=== PATIENT | male | born 1990 | race Caucasian/White ===

== ENCOUNTER 2025-03-03 19:26 | Emergency (ER) | payer MEDICAID, OTHER ==
[~2025-03-03] VITALS: Ht 177.8 cm; Wt 72.6 kg
[2025-03-03 19:56] VITALS: PULSE 100; RESP 20; O2SAT 99
--- NOTE | 2025-03-03 20:23 | ED.PDOC ---
History of Present Illness HPI Comments 34-year-old male brought in by EMS presents with a chief complaint of psychiatric distress. Per EMS, patient was found in the [employer] parking lot after he had made a call to 911 stating that he was exposing his buttocks to citizens. Patient has rambling speech and nonlinear thought process. Unable to obtain a complete medical history as it is difficult for patient to relate any complaints or symptoms at this time. Further history taken from patient's mother. Patient does have a history of Asperger's and marzena. He called his mother this morning and told her that since he was unable to obtain marijuana from a dispensary as he usually does, he purchased unknown substance and took it from someone at the [employer] parking lot. Chief Complaint: Suicidal Time Seen by MD: 20:06 Reviewed Notes: Medications, Allergies Allergies: Coded Allergies: Methylprednisolone (Verified Allergy, Intermediate, Hives/ rash, 03/03/25) reported by pt mother Information Source: Emergency Med Personnel Mode of Arrival: EMS Severity: Moderate Timing: Minutes Duration: Since onset Prehospital treatment: None Vital Signs Vital Signs Date Time Temp Pulse Resp B/P (MAP) Pulse Ox O2 Delivery O2 Flow Rate FiO2 03/03/25 19:56 100 20 99 Room Air* 0 21 03/03/25 19:56 98.0 129/63 (85) 98.0 Physical Exam General: Patient is awake, alert Skin: Skin in warm, dry and intact without rashes or lesions. HEENT: The head is normocephalic and atraumatic. Conjunctivae are clear without exudates or hemorrhage. Sclera is non-icteric. Neck: Normal range of motion. No JVD. Cardiac: Regular rate Respiratory: No signs of respiratory distress. No Stridor. Extremities: Upper and lower extremities are atraumatic in appearance without deformity. Neurological: The patient is awake, alert . Speech is clear and not slurred. There is no facial asymmetry. Patient does not answer orientation questions appropriately. He is ambulating around the emergency department without difficulty Psychiatric: Patient is hyperactive, not answering questions appropriately labile mood and affect. Patient makes unrelated statements and appears to be somewhat delusional when asked any questions. Review of Systems: REVIEW OF SYSTEMS: Unable to obtain due to psychiatric condition Past Medical History PAST MEDICAL HISTORY: Unknown, Pt Confused Surgical History: Unknown, Pt Confused Family History Family History: Unknown, Pt Confused Social History Smoker: Unknown, Pt Confused Alcohol: Unknown, Pt Confused Drugs: Unknown, Pt Confused Lives In: Unknown, Pt Confused Was a procedure done? Was a procedure done?: No Differential Dx Considerations may include: Acute psychosis, substances psychosis, metabolic encephalopathy, marzena, other X-Ray, Labs, Meds, VS Vital Signs Date Time Temp Pulse Resp B/P (MAP) Pulse Ox O2 Delivery O2 Flow Rate FiO2 03/03/25 19:56 100 20 99 Room Air* 0 21 03/03/25 19:56 98.0 100 20 129/63 (85) 99 98.0 03/03/25 19:34 100 30 129/63 (85) 99 Lab Test 03/03/25 21:09 03/03/25 20:20 Range/Units Urine Color Yellow Yellow Urine Clarity Clear Clear Urine pH 5.5 5.0-9.0 Urine Specific [place] 1.023 1.001-1.035 Urine Protein Trace H Negative Urine Ketones Negative Negative Urine Blood Negative Negative /uL Urine Nitrite Negative Negative Urine Bilirubin Negative Negative Urine Urobilinogen 2 H Negative mg/dL Urine Leukocyte Esterase Negative Negative /uL Urine RBC 1 0 - 3 /hpf Urine Microscopic WBC 9 H 0-3 /HPF Urine Squamous Epithelial Cells Few <5 /hpf Urine Bacteria None seen None Seen /hpf Urine Mucus Few None Seen Urine Glucose Normal Normal mg/dL Urine Opiates Screen Neg NEGATIVE Urine Fentanyl Screen Neg NEGATIVE Urine Barbiturates Screen Neg NEGATIVE Urine Phencyclidine Screen Neg NEGATIVE Urine Amphetamines Screen Neg NEGATIVE Urine Benzodiazepines Screen Neg NEGATIVE Urine Cocaine Screen Neg NEGATIVE Urine Cannabinoids Screen Pos NEGATIVE White Blood Count 9.8 4.4-10.8 10^3/uL Red Blood Count 4.61 4.5-5.90 10^6/uL Hemoglobin 13.7 13.5-17.5 g/dL Hematocrit 40.6 L 41.0-53.0 % Mean Corpuscular Volume 88.0 80.0-100.0 fL Mean Corpuscular Hemoglobin 29.7 28.0-32.0 pg Mean Corpuscular Hemoglobin Concent 33.7 32.0-36.0 g/dL Red Cell Distribution Width 12.7 11.8-14.3 % Platelet Count 242 140-450 10^3/uL Mean Platelet Volume 8.5 6.9-10.8 fL Neutrophils (%) (Auto) 79.0 37.0-80.0 % Lymphocytes (%) (Auto) 14.8 10.0-50.0 % Monocytes (%) (Auto) 4.0 0.0-12.0 % Eosinophils (%) (Auto) 1.6 0.0-7.0 % Basophils (%) (Auto) 0.6 0.0-2.0 % Neutrophils # (Auto) 7.8 1.6-8.6 10 ^3/uL Lymphocytes # (Auto) 1.5 0.4-5.4 10 ^3/uL Monocytes # (Auto) 0.4 0-1.3 10 ^3/uL Eosinophils # (Auto) 0.2 0-0.8 10 ^3/uL Basophils # (Auto) 0.1 0-0.2 10 ^3/uL Nucleated Red Blood Cells 0.0 % Sodium Level 139 136-145 mmol/L Potassium Level 3.7 3.5-5.1 mmol/L Chloride Level 107 98-107 mmol/L Carbon Dioxide Level 24 20-31 mmol/L Anion Gap 8 5-15 Blood Urea Nitrogen 9 9-23 mg/dL Creatinine 0.96 0.700-1.30 mg/dL Glomerular Filtration Rate Calc 106 >90 mL/min BUN/Creatinine Ratio 9.4 L 10.0-20.0 Serum Glucose 129 H 74-106 mg/dL Calcium Level 9.6 8.7-10.4 mg/dL Total Bilirubin 0.2 0.2-1.0 mg/dL Aspartate Amino Transferase (AST) 20 13-40 U/L Alanine Aminotransferase (ALT) 44 H 7-40 U/L Alkaline Phosphatase 121 H 46-116 U/L Total Protein 6.8 5.7-8.2 g/dL Albumin 4.5 3.2-4.8 g/dL Plasma/Serum Blood Alcohol 3.8 <10 mg/dL Current Medications Medications (Trade) Dose Ordered Sig/Santy Route Start Time Stop Time Status Last Admin Lorazepam (Ativan Inj) 2 mg ONCE ONCE IM 03/03/25 21:00 03/03/25 21:01 DC 03/03/25 22:21 Haloperidol Lactate (Haldol) 5 mg ONCE ONCE IM 03/03/25 21:00 03/03/25 21:01 DC 03/03/25 22:21 Time of 1ST Reevaluation: 20:36 Reevaluation 1ST: Unchanged Consultation: Psychiatry (Discussed with Dr. Willis. Recommendation is re- evaluation in the morning, suspect drug intoxication.) Patient Education/Counseling: Other (Psychiatric disorder) Family Education/Counseling: No Family Present Change of Shift?: Yes (Sounds with Dr. Le at 6:00 a.m. change of shift) Departure 1 Departure Time of Disposition: 05:28 Impression: Primary Impression: Bizarre behavior Disposition: 30 STILL A PATIENT Condition: Stable Comments 34-year-old male who presents to the emergency department with bizarre behavior. Possibly secondary to unknown substance ingestion. Pending re-evaluation by Psychiatry in the morning. Critical Care Note Critical Care Time?: No Stability Stability form required: No Heart Score Heart Score: Heart Score Response (Comments) Value History N/A 0 EKG N/A 0 Age N/A 0 Risk Factors N/A 0 Troponin N/A 0 Total 0 I personally scribed for NORBERTO COLLAZO MD ([email or web address]) on 03/03/25 at 20:23. Electronically submitted by Kevin Osorio ([email or web address]). NORBERTO COLLAZO MD Mar 03, 2025 20:23
[2025-03-03 20:53] LABS: Basophils # (auto) 0.1 10 ^3/uL (0-0.2); Basophils % (auto) 0.6 % (0.0-2.0); Eosinophils # (auto) 0.2 10 ^3/uL (0-0.8); Eosinophils % (auto) 1.6 % (0.0-7.0); Hematocrit 40.6 % (41.0-53.0); Hemoglobin 13.7 g/dL (13.5-17.5); Lymphocytes # (auto) 1.5 10 ^3/uL (0.4-5.4); Lymphocytes % (auto) 14.8 % (10.0-50.0); Mean Corpuscular Hemoglobin 29.7 pg (28.0-32.0); Mean Corpuscular Hgb Conc. 33.7 g/dL (32.0-36.0); Monocytes # (auto) 0.4 10 ^3/uL (0-1.3); Neutrophils # (auto) 7.8 10 ^3/uL (1.6-8.6); Platelet Count (auto) 242 10^3/uL (140-450); Red Blood Cells 4.61 10^6/uL (4.5-5.90); Red Cell Distribution Width 12.7 % (11.8-14.3); White Blood Cell 9.8 10^3/uL (4.4-10.8)
[2025-03-03 21:05] LABS: Albumin 4.5 g/dL (3.2-4.8); Anion Gap 8 (5-15); Aspartate Aminotransferase 20 U/L (13-40); BUN/Creatinine Ratio 9.4 (10.0-20.0); Blood Alcohol 3.8 mg/dL (<10); Calcium 9.6 mg/dL (8.7-10.4); Carbon Dioxide 24 mmol/L (20-31); Potassium 3.7 mmol/L (3.5-5.1); Sodium 139 mmol/L (136-145); Total Protein 6.8 g/dL (5.7-8.2)
[2025-03-03 21:11] LABS: Urine Bacteria None Seen /hpf (None Seen)
[2025-03-03 21:17] LABS: Alanine Aminotransferase 44 U/L (7-40); Alkaline Phosphatase 121 U/L (46-116); Bilirubin, Total 0.2 mg/dL (0.2-1.0); Blood Urea Nitrogen 9 mg/dL (9-23); Chloride 107 mmol/L (98-107); Glucose 129 mg/dL (74-106)
[2025-03-03 21:33] LABS: Urine Blood Negative /uL (Negative); Urine Clarity Clear (Clear); Urine Color Yellow (Yellow); Urine Mucus FEW (None Seen); Urine Protein, UAD TRACE (Negative); Urine Specific Gravity 1.023 (1.001-1.035); Urine Squamous Epithelial Cell FEW /hpf (<5); Urine Urobilinogen 2 mg/dL (Negative); Urine WBC 9 /HPF (0-3); Urine pH 5.5 (5.0-9.0)
[2025-03-03 21:37] LABS: Amphetamine Screen, Urine Neg (NEGATIVE)
[2025-03-03 21:38] LABS: Barbiturate Scree,Urine Neg (NEGATIVE); Benzodiazephine Screen, Urine Neg (NEGATIVE); Cannabinoid Screen, Urine Pos (NEGATIVE); Cocaine Screen, Urine Neg (NEGATIVE); Opiate Scree,Urine Neg (NEGATIVE); Phencyclidine Screen, Urine Neg (NEGATIVE)
[2025-03-03] MEDS: HALOPERIDOL LACTATE 5 MG/ML INJ VIAL IM ONE (22:21)
[2025-03-03] MEDS: LORazepam 2MG/ML-1ML VIAL IM ONE (22:21)
--- NOTE | 2025-03-03 22:52 | DVHINCON2 ---
Date of Service if different f: Mar 03, 2025 Time of Service: 22:22 Consultation ([facility]) Consulting Physician: DEE GARY MD Labs Laboratory Tests Test 03/03/25 20:20 03/03/25 21:09 White Blood Count 9.8 10^3/uL (4.4-10.8) Red Blood Count 4.61 10^6/uL (4.5-5.90) Hemoglobin 13.7 g/dL (13.5-17.5) Hematocrit 40.6 % (41.0-53.0) Mean Corpuscular Volume 88.0 fL (80.0-100.0) Mean Corpuscular Hemoglobin 29.7 pg (28.0-32.0) Mean Corpuscular Hemoglobin Concent 33.7 g/dL (32.0-36.0) Red Cell Distribution Width 12.7 % (11.8-14.3) Platelet Count 242 10^3/uL (140-450) Mean Platelet Volume 8.5 fL (6.9-10.8) Neutrophils (%) (Auto) 79.0 % (37.0-80.0) Lymphocytes (%) (Auto) 14.8 % (10.0-50.0) Monocytes (%) (Auto) 4.0 % (0.0-12.0) Eosinophils (%) (Auto) 1.6 % (0.0-7.0) Basophils (%) (Auto) 0.6 % (0.0-2.0) Neutrophils # (Auto) 7.8 10 ^3/uL (1.6-8.6) Lymphocytes # (Auto) 1.5 10 ^3/uL (0.4-5.4) Monocytes # (Auto) 0.4 10 ^3/uL (0-1.3) Eosinophils # (Auto) 0.2 10 ^3/uL (0-0.8) Basophils # (Auto) 0.1 10 ^3/uL (0-0.2) Nucleated Red Blood Cells 0.0 % Sodium Level 139 mmol/L (136-145) Potassium Level 3.7 mmol/L (3.5-5.1) Chloride Level 107 mmol/L (98-107) Carbon Dioxide Level 24 mmol/L (20-31) Anion Gap 8 (5-15) Blood Urea Nitrogen 9 mg/dL (9-23) Creatinine 0.96 mg/dL (0.700-1.30) Glomerular Filtration Rate Calc 106 mL/min (>90) BUN/Creatinine Ratio 9.4 (10.0-20.0) Serum Glucose 129 mg/dL (74-106) Calcium Level 9.6 mg/dL (8.7-10.4) Total Bilirubin 0.2 mg/dL (0.2-1.0) Aspartate Amino Transf (AST/SGOT) 20 U/L (13-40) Alanine Aminotransferase (ALT/SGPT) 44 U/L (7-40) Alkaline Phosphatase 121 U/L (46-116) Total Protein 6.8 g/dL (5.7-8.2) Albumin 4.5 g/dL (3.2-4.8) Plasma/Serum Blood Alcohol 3.8 mg/dL (<10) Urine Color Yellow (Yellow) Urine Clarity Clear (Clear) Urine pH 5.5 (5.0-9.0) Urine Specific [place] 1.023 (1.001-1.035) Urine Protein Trace (Negative) Urine Ketones Negative (Negative) Urine Blood Negative /uL (Negative) Urine Nitrite Negative (Negative) Urine Bilirubin Negative (Negative) Urine Urobilinogen 2 mg/dL (Negative) Urine Leukocyte Esterase Negative /uL (Negative) Urine RBC 1 /hpf (0 - 3) Urine Microscopic WBC 9 /HPF (0-3) Urine Squamous Epithelial Cells Few /hpf (<5) Urine Bacteria None seen /hpf (None Seen) Urine Mucus Few (None Seen) Urine Glucose Normal mg/dL (Normal) Urine Opiates Screen Neg (NEGATIVE) Urine Fentanyl Screen Neg (NEGATIVE) Urine Barbiturates Screen Neg (NEGATIVE) Urine Phencyclidine Screen Neg (NEGATIVE) Urine Amphetamines Screen Neg (NEGATIVE) Urine Benzodiazepines Screen Neg (NEGATIVE) Urine Cocaine Screen Neg (NEGATIVE) Urine Cannabinoids Screen Pos (NEGATIVE) Appearance: Stated age Psychomotor activity: Restless Behavioral: [place] Eye contact: Avoids Speech: WNL Affect: Mood Congruent Mood: Anxious Thought processes: Disorganized Thought content: WNL Suicidal ideations: Absent Homicidal ideations: Absent Orientation: Person Intellect: Average Abstractability: Marginal Concentration: Limited Attention: Limited Judgement: Poor Insight: Poor Vitals Vital Signs Date Time Temp Pulse Resp B/P (MAP) Pulse Ox O2 Delivery O2 Flow Rate FiO2 4/7/25 19:56 100 20 99 Room Air* 0 21 03/03/25 19:56 98.0 129/63 (85) 98.0 Treatment plan discussed: With staff Medication adjusted: Yes Labs ordered: No Psychotherapy provided: No Type: Voluntary History of Present Illness Reason for Consult : psychiatric evaluation PER ED PHYSICIAN:34-year-old male brought in by EMS presents with a chief complaint of psychiatric distress. Per EMS, patient was found in the [facility] parking lot after he had made a call to 911 stating that he was exposing his buttocks to citizens. Patient has rambling speech and nonlinear thought process. Unable to obtain a complete medical history as it is difficult for patient to relate any complaints or symptoms at this time. PSYCHIATRIST HPI: The patient was seen and evaluated at [facility] ED via telepsychiatry platform. 34 yr old male reported he is a little nauseated. He noted that he did some drugs. He said "I don't know what drugs I did." He said "I'm sick, I can't get out of the skin of my body." He said there is too much pain and too much sensation." Mother reported that he has Asperger's and at times feels manic but medicates this with marijuana. She stated he may have taken some street drugs if he didn't have access to marijuana. He denied having suicidal ideation, plan or intent and denied having HI/AVH. Past Psychiatric History : No past hospitalizations, treatment or suicide attempts. Past Medical History : none Current medications: None Substance use: Marijuana use, last use today. Occasional social alcohol use. Denied use of other substances. Social History : Lives In [place] by self. Unemployed. Attended some college. Diagnosis: Unspecified substance intoxication; cannabis use disorder Formulation: This 34 yr old male appears to suffer from some substance intoxication and Asperger's Syndrome. He noted he smokes marijuana but also that he took some random street drugs people gave him. He appears agitated and disturbed as well as feels hot. He may benefit observation in the ED to see if he clears the intoxication overnight. Additionally he may benefit from receiving ativan and zyprexa to help him calm down. Plan: 1. Recommend observing in ED overnight and reassessing in morning to see if he warrants admission to a behavioral health unit. 2. Legal-voluntary, but with current disorganization he meets criteria for involuntary hold on basis of grave disability. 3. Medications: recommend ativan 2mg PO or IM and zyprexa 10mg PO or IM q8hr prn for agitation. 4. Case discussed with ED RN Norberto. 5. Please recontact psychiatry for further follow up or reevaluation. Assessment/Diagnosis/Plan Reviewed: Labs, Medications, Previous Orders DEE GARY MD Mar 03, 2025 22:24
[2025-03-04] MEDS: LORazepam 0.5 MG TAB PO ONE (13:55)
[2025-03-04] MEDS: LORazepam 0.5 MG TAB PO PRN (19:47)
[2025-03-04 21:35] VITALS: PULSE 88; RESP 18; O2SAT 98
[2025-03-05 07:30] VITALS: PULSE 88; RESP 16; O2SAT 98
[2025-03-05] MEDS: OLANZapine 5 MG TAB PO PRN (12:01)
[2025-03-05 14:00] VITALS: BP 134/86; PULSE 84; RESP 16; TEMP 98; O2SAT 100
== END 2025-03-05 14:56 | disposition home or self-care (01) ==
LOC: EDBD 19:26 → ER 19:26
DX: R46.2 Strange and inexplicable behavior (principal); R41.0 Disorientation, unspecified
CPT/HCPCS: 36415; 80053; 80307; 80320; 81001; 85025; 96372; 99284; J1630; J2060